=== PATIENT | male | born 1970 | race Caucasian/White ===

== ENCOUNTER 2024-11-11 09:08 | Day surgery (SDC) | payer OTHER, SELFPAY ==
[2024-11-11] VITALS (15 sets, daily range): BP systolic 109–138; BP diastolic 60–81; BMI 30.3
[2024-11-11] MEDS: LOW STRENGTH ASPIRIN 324 MG PO (09:42)
[2024-11-11 12:28] LABS: ACT-LR - POC > 397 Seconds (116-155)
[2024-11-11 12:28] LABS: ACT-LR - POC > 397 Seconds (116-155)
[2024-11-11 12:28] LABS: ACT-LR - POC > 397 Seconds (116-155)
[2024-11-11] MEDS: MORPHINE SULFATE 2 MG IV (12:38)
[2024-11-11] MEDS: TYLENOL 650 MG PO (12:39)
[2024-11-11] MEDS: NSS 1000 IV (12:40)
--- NOTE | 2024-11-11 15:24 | ITS.CL.ANGIO ---
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
Angioplasty
Procedure Report:
LEFT HEART CATHETERIZATION
Date of Procedure: November 11, 2024
Procedures performed:
1: Coronary angiography
2: Left ventricular hemodynamic assessment
3: Percutaneous coronary invention of the third obtuse marginal branch with placement of a 2.75 x 26 mm Robbins drug-eluting stent postdilated to high-pressure with a 3.0 mm diameter noncompliant balloon
4: Percutaneous coronary invention of the distal circumflex with placement of a 3.0 x 18mm Parveen drug-eluting stent postdilated at high pressure with a 3.5 mm diameter noncompliant balloon
Primary Care Physician: Dr. Camryn Robertson
Primary Boarding Machine Operator: Dr. Evin Antonio
INDICATION: The patient is a 54-year-old man with a past medical history significant for strong family history for premature coronary disease, status post gastric bypass surgery with over 200 pound weight loss, hypertension, and hyperlipidemia who
presents with new angina. Stress test performed on November 09 was high risk. The patient walked 7 minutes and 14 seconds and experienced chest pain without dynamic EKG changes. Gated nuclear imaging showed an ejection fraction at rest of
66% and 72% at stress. There is a moderate to large sized severely intense reversible defect involving the basal and mid inferior inferoseptal and to some degree inferolateral segments consistent with ischemia.
ACCESS: The patient was prepped and draped in usual sterile fashion. A 6 Nigerien sheath was placed in the right radial artery using the Seldinger over the wire technique.
HEMODYNAMIC FINDINGS (mmHg):
LV(s/d,EDP): 120/13, 15
Ao(s/d,m): 104/69, 85
ANGIOGRAPHIC FINDINGS:
Single-plane Left Ventriculography in AARON Projection: Not done.
Coronary Angiography:
Dominance: Left
Left Main: Large-caliber, normal
Left Anterior Descending: The LAD is a medium caliber vessel that has diffuse proximal moderate luminal irregularities with at worst a 30 to 40% proximal stenosis. The mid and distal vessels are widely patent with normal flow.
Ramus intermedius: There is a small to intermediate caliber ramus intermedius branch that has a smooth proximal 40 to 50% stenosis with normal distal flow.
Left Circumflex: The left circumflex is a large-caliber dominant vessel that gives rise to 2 tiny proximal OM's that are patent, a very large caliber third obtuse marginal branch and then terminates in a left-sided posterior left ventricular branch
and left-sided posterior descending artery. The third obtuse marginal branch has a long area of proximal diffuse 40 to 50% disease tapering down to 70% mid stenosis. The distal vessel is large caliber and gives 2 large branches that coursed to the
lateral apex with normal flow. Just after the OM 3 takeoff there is a severe tapered 90% hazy stenosis. Beyond this there is a medium caliber left-sided posterior left ventricular branch that has mild luminal irregularities. The circumflex
terminates in a large caliber posterior descending artery that has a smooth mid 50% stenosis with normal distal flow.
Right Coronary: Small nondominant vessel that is widely patent.
Percutaneous Coronary Intervention (PCI): In light of the patient's crescendo symptoms and the above angiographic findings, I elected to proceed with PCI. I felt that the culprit was clearly the distal circumflex lesion however the proximal OM 3
disease was also obstructive and plan to treat both large vessels. The patient was pretreated with aspirin and unfractionated heparin was given. A 6 Nigerien XB 3.5 guiding catheter was used to engage the left main. A Hi-Torque floppy wire was
easily advanced across the OM 3 lesion into the distal vessel. A second Hi-Torque floppy wire was advanced across the 90% distal circumflex lesion into the left PDA. The preocclusive circumflex lesion was predilated with a 2.0 x 20 mm balloon.
Next the same balloon was used to predilate the most severe area of the OM 3 lesion. Next, a 2.75 x 26 mm Parveen drug-eluting stent was deployed in the proximal and mid OM 3. The stent was postdilated with a 3.0 mm diameter noncompliant balloon at
16 aristeo. This was done in a distal to proximal fashion taking care to stay within the stented margins. I then turned my attention to the true distal circumflex. A 3.0 x 18 mm Parveen drug-eluting stent was deployed taking care to avoid jailing the
previously stented OM 3. Post stent deployment angiography confirmed excellent positioning without plaque shift into the adjacent OM 3 ostium. The stent was postdilated with a 3.5 mm diameter noncompliant balloon and distal to proximal fashion at
16 aristeo. The patient was given a loading dose of 600 mg of Plavix at the end of the procedure.
FINAL RESULT: 0% in-stent residual stenosis in both stents with an excellent angiographic result and CECILIA-3 flow in all vessels.
Fluoroscopy Time (min): 13.5
Radiation Dose (mGy): 1204
DAP (Gy.cm2): 47
Closure device: None. A TR band was applied for hemostasis at the right wrist.
Complications: None.
ASSESSMENT:
1: Successful PCI of the circumflex with treatment of 2 major vessels with drug-eluting stents in the distal circumflex as described above.
2: Mild aortic stenosis.
CONCLUSIONS and RECOMMENDATIONS:
1: Routine post PCI and post drug-eluting stent medical therapy and monitoring.
2: Check echo as planned. This was not done preprocedure as the procedure was expedited based on the patient's crescendo symptoms and high risk stress test. I am interested in looking at the aortic valve given the gradients noted today.
3: Close clinical follow-up as scheduled.
Paulie Resendez M.D.
Copy to: Dr. Camryn Robertson
--- NOTE | 2024-11-11 16:45 | W.PN.UPDATE ---
Update Note
Progress Note Update
54 yo WM s/p PCI LCX and OM (same day). He initially had some chest/jaw pain, headache, body aches which have since resolved. He is dipti diet, voiding, amb w/o dizziness or chest pain. EKG SR no sig ST changes. R rad site c/d/i. He will continue DAPT
ASA/Plavix. He will increase rosuvastatin to 40mg. We will add PPI while on DAPT. Cardiac rehab c/s. Activity restriction reviewed. He will f/u Dr. Antonio in 1 mo. He is for d/c home after 445pm.
== END 2024-11-11 17:00 | disposition home or self-care (01) ==
LOC: CATH 09:08
PROVIDERS: ATTENDING PHYSICIAN Internal Medicine Interventional Cardiology; FAMILY PHYSICIAN Family Medicine; OTHER PHYSICIAN Internal Medicine Cardiovascular Disease
DX: I25.119 Atherosclerotic heart disease of native coronary artery with unspecified angina pectoris (principal); I35.0 Nonrheumatic aortic (valve) stenosis; Z82.49 Family history of ischemic heart disease and other diseases of the circulatory system; Z98.84 Bariatric surgery status; Z98.0 Intestinal bypass and anastomosis status; Z79.82 Long term (current) use of aspirin; Z79.02 Long term (current) use of antithrombotics/antiplatelets; Z79.899 Other long term (current) drug therapy
CPT/HCPCS: 85347; 93005; 93458; C1725; C1769; C1874; C1887; C1894; C9600; C9601; Q9967